=== PATIENT | male | born 1955 | race Caucasian/White ===

== ENCOUNTER 2024-10-25 08:10 | Outpatient (RCR) | payer MEDICARE, SELFPAY ==
[2024-09-10 08:59] LABS: Estimated Average Glucose 100 mg/dL; Hemoglobin A1c % 5.1 % (<6.0)
[2024-09-10 09:25] LABS: Erythrocyte Sedimentation Rate 2 MM/HR (0-15)
== END 2024-11-28 11:59 | disposition home or self-care (01) ==
LOC: HO.WCC 08:10
PROVIDERS: PCP Internal Medicine; Visit Provider Surgery
DX: I87.012 Postthrombotic syndrome with ulcer of left lower extremity (principal); L97.522 Non-pressure chronic ulcer of other part of left foot with fat layer exposed; I87.2 Venous insufficiency (chronic) (peripheral)
CPT/HCPCS: 11042; 15271; 15275; 29581; 36415; 83036; 85652; 86140; 99211; 99212; 99213; Q4186; Q4187